=== PATIENT | female | born 2000 | race Caucasian/White ===

== ENCOUNTER 2022-09-20 23:52 | Emergency (ER) | payer BC, SELFPAY ==
[2022-09-21 00:08] VITALS: BP 147/93; PULSE 140; RESP 22; TEMP 36.5; O2SAT 99; BMI 20.7
[2022-09-21 01:15] VITALS: BP 118/79; PULSE 91; RESP 19; O2SAT 95
--- NOTE | 2022-09-21 01:16 | ED_ITS ---
HPI - Nausea/Vomiting/Diarrhea General: Chief complaint: Nausea/Vomiting/Diarrhea Stated complaint: abdomen, luong, post dental surgery Time Seen by Provider: 09/21/22 00:42 Source: patient Mode of arrival: ambulatory Limitations: no limitations History of Present Illness: 21-year-old female states she had her wisdom teeth extracted on she states she had taken some hydrocodone for the pain which caused her to have GI upset states she had had vomiting on Tuesday states she quit taking it and was improved on Tuesday but states she started having upset stomach and vomiting again today. States her dental pain has improved she has been taking Excedrin for that she had 3-4 episodes of vomiting today states she feels dehydrated she has some diffuse abdominal cramping denies any severe pain. She denies any fevers. Associated nausea: Yes Associated symtoms: Reports nausea; Denies chest pain, dysuria or headache(s) Review of Systems Const: Reports: change in appetite; Denies: fever(s), chills or body aches ENMT: Reports: dental pain; Denies: throat pain Card: Denies: chest pain Resp: Denies: dyspnea GI: Reports: nausea and vomiting; Denies: abdominal pain or diarrhea : Denies: dysuria Musc: Denies: neck pain or back pain Skin/Breast: Denies: rash Neuro: Denies: headache(s) Psych: Denies: depression PFSH ED PFSH: Medical History (Updated 09/21/22 @ 03:16 by Daniela Corbin MD) No pertinent past medical history Social History (Updated 09/21/22 @ 01:18 by Daniela Corbin MD) Alcohol intake: never Physical Exam Const: COMMON NORMALS: no acute distress, patient oriented x3 and healthy stefania earing HENMT: COMMON NORMALS: normocephalic and atraumatic HEAD & SCALP: normocephalic and atraumatic Eye: COMMON NORMALS: conjunctivae normal CONJUNCTIVA: Yes conjunctivae normal Neck/C-Spine: COMMON NORMALS: full ROM and supple Chest: COMMONS NORMALS: normal inspection of the chest and normal palpation of entire chest wall Resp: COMMON NORMALS: normal respiratory effort, No retractions, No use of accessory muscles and clear to auscultation bilaterally AUSCULTATION: clear to auscultation bilaterally Cardio: COMMON NORMALS: regular rhythm and No murmurs present (Cardio) RAT E: tachycardic RHYTHM: regular rhythm GI: COMMON NORMALS: Normal to inspection, nondistended, normoactive bowel sounds present, Soft to palpation, non-tender and no masses PALPATION: Yes Soft to palpation Extremity: COMMON NORMALS: normal to inspection and full ROM Neuro: COMMON NORMALS: patient oriented x3, moves all extremities and no focal motor deficits Psych: COMMON NORMALS: mental status grossly normal, Normal thought process present and cooperative THOUGHT PROCESS: Normal thought process present Skin: COMMON NORMALS: no rashes or lesions noted and no wounds GENERAL SKIN EXAM: no rashes or lesions noted Course Vital Signs: Vital signs: Vital Signs Temperature 97.7 F 09/21/22 00:08 Pulse Rate 142 H 09/21/22 04:00 Respiratory Rate 20 H 09/21/22 04:00 Blood Pressure 108/84 09/21/22 04:00 Pulse Oximetry 98 09/21/22 04:00 Oxygen Delivery Me thod Room Air 09/21/22 04:00 MDM - Nausea/Vomiting/Diarrhea Medical Decision Making Patient presents here with nausea vomiting is likely headache from her meds hurt discharge vital signs are incorrect her heart rate improved to 105 she felt much improved as well her blood work here is all normal we will prescribe her Zofran she is stable for discharge return if worsening. Medical Records I reviewed the patient's medical records. Lab Data I reviewed the patient's lab results. 09/21/22 01:25 09/21/22 01:25 Laboratory Results WBC 9.3 10^3/uL (4.5-13.0) 09/21/22 01:25 RBC 4.35 10^6/uL (4.1-5.3) 09/21/22 01:25 Hgb 13.7 g/dL (11.5-15.3) 09/21/22 01:25 Hct 41.3 % (37.0-47.0) 09/21/22 01:25 MCV 94.9 fl (81-99) 09/21/22 01:25 MCH 31.5 pg (28.0-34.0) 09/21/22 01:25 MCHC 33.2 g/dL (30.0-36.0) 09/21/22 01:25 RDW 12.0 % (12.1-15.1) L 09/21/22 01:25 Plt Count 251 10^3/cmm (130-400) 09/21/22 01:25 MPV 10.0 fL (7.4-10.4) 09/21/22 01:25 Neut % (Auto) 82.2 % 09/21/22 01:25 Lymph % (Auto) 12.6 % 09/21/22 01:25 [place] % (Auto) 4.2 % 09/21/22 01:25 Eos % (Auto) 0.2 % 09/21/22 01:25 Baso % (Auto) 0.4 % 09/21/22 01:25 Neut # (Auto) 7.63 10^3/uL (1.8-8.0) 09/21/22 01:25 Lymph # (Auto) 1.2 10^3/uL (1.5-6.5) L 09/21/22 01:25 [place] # (Auto) 0.4 10^3/uL (0.2-0.9) 09/21/22 01:25 Eos # (Auto) 0.0 10^3/uL (0.0-0.8) 09/21/22 01:25 Baso # (Auto) 0.0 10^3/uL (0.0-0.1) 09/21/22 01:25 Nucleated RBC % (auto) 0 % 09/21/22 01:25 Nucleated RBCs # 0.0 /100WBC 09/21/22 01:25 Sodium 139 mmol/L (136-145) 09/21/22 01:25 Potassium 3.7 mmol/L (3.5-5.1) 09/21/22 01:25 Chloride 102 mmol/L (98-107) 09/21/22 01:25 Carbon Dioxide 24 mmol/L (22-29) 09/21/22 01:25 Anion Gap 16.7 (5-19) 09/21/22 01:25 BUN 11 mg/dL (6-20) 09/21/22 01:25 Creatinine 0.9 mg/dL (0.5-0.9) 09/21/22 01:25 GFR Calculation 79.8 mL/min (90-130) L 09/21/22 01:25 Glucose 109 mg/dL (65-115) 09/21/22 01:25 Calculated Osmolality 288 mOsm/kg (285-295) 09/21/22 01:25 Calcium 9.4 mg/dL (8.5-10.5) 09/21/22 01:25 Total Bilirubin 0.2 mg/dL (0.15-1.2) 09/21/22 01:25 AST 23 U/L (0-32) 09/21/22 01:25 ALT 35 U/L (0-33) H 09/21/22 01:25 Alkaline Phosphatase 69 U/L (35-105) 09/21/22 01:25 Total Protein 7.5 g/dL (6.6-8.7) 09/21/22 01:25 Albumin 4.3 g/dL (3.5-5.2) 09/21/22 01:25 Globulin 3.2 g/dL (1.3-4.6) 09/21/22 01:25 Lipase 29 U/L (13-60) 09/21/22 01:25 HCG, Qual Negative (Negative) 09/21/22 01:25 Urine Color Yellow (Yellow) 09/21/22 02:42 Urine Appearance Hazy (CLEAR) A 09/21/22 02:42 Urine pH 7 (5-7) 09/21/22 02:42 Ur Specific [place] 1.015 (1.005-1.030) 09/21/22 02:42 Urine Protein Neg (Negative) 09/21/22 02:42 Urine Glucose (UA) Norm (Normal) 09/21/22 02:42 Urine Ketones 1+ (Negative) H 09/21/22 02:42 Urine Blood 3+ (Negative) H 09/21/22 02:42 Urine Nitrate Positive (Negative) H 09/21/22 02:42 Urine Bilirubin Neg (Negative) 09/21/22 02:42 Urine Urobilinogen Neg mg/dL (Negative) 09/21/22 02:42 Ur Leukocyte Esterase Negative (Negative) 09/21/22 02:42 Urine RBC 5-10 /hpf (0-2) H 09/21/22 02:42 Urine WBC 0-4 /hpf (0-5) H 09/21/22 02:42 Ur Squamous Epith Cells 0-4 /hpf (0-5) H 09/21/22 02:42 Amorphous Sediment Not Reportable 09/21/22 02:42 Urine Bacteria 3+ /hpf (NONE) H 09/21/22 02:42 Discharge Plan Discharge Patient Disposition: Home Clinical Impression: Vomiting, Acute cystitis Prescriptions: New cephalexin 500 mg capsule 500 mg PO TID 7 Days Qty: 21 0RF ondansetron 4 mg tablet,disintegrating 4 mg PO Q6H PRN (Reason: nausea and vomiting) Qty: 14 0RF Discharge Orders: Discharge ED (Routine); Ordered 09/21/22 Ordered By: Daniela Corbin Referrals: Margoth Clark MD [Primary Care Provider] - 1-3 days Discharge Diet: Advance as tolerated Discharge Activity: Resume usual activity Patient Instructions: Urinary Tract Infection in Women (ED), Acute Nausea and Vomiting (ED) Stand Alone Forms: Work/School Release Coding Level of Care Code ED Epidemiology Intern for Anam Hart
[2022-09-21 01:28] LABS: Basophils % 0.4 %; Eosinophils % 0.2 %; Hematocrit 41.3 % (37.0-47.0); Hemoglobin 13.7 g/dL (11.5-15.3); Lymphocytes # 1.2 10^3/uL (1.5-6.5); Lymphocytes % 12.6 %; Mean Corpuscular HGB Conc 33.2 g/dL (30.0-36.0); Mean Corpuscular Hemoglobin 31.5 pg (28.0-34.0); Mean Corpuscular Volume 94.9 fl (81-99); Monocytes # 0.4 10^3/uL (0.2-0.9); Monocytes % 4.2 %; Neutrophils # 7.63 10^3/uL (1.8-8.0); Neutrophils % 82.2 %; Nucleated Red Blood Cells % 0 %; Platelet Count 251 10^3/cmm (130-400); Red Blood Count 4.35 10^6/uL (4.1-5.3); White Blood Count 9.3 10^3/uL (4.5-13.0)
[2022-09-21] MEDS: sodium chloride 0.9% 1,000 ML 999 ML IV ×2 (01:35→02:33)
[2022-09-21] MEDS: ondansetron 2 mg/ML SDV 2 mL 4 MG IVP (01:36)
[2022-09-21 01:45] LABS: HCG, Serum Qual Negative (Negative)
[2022-09-21 01:49] LABS: Alanine Aminotransferase 35 U/L (0-33); Albumin Level 4.3 g/dL (3.5-5.2); Alkaline Phosphatase 69 U/L (35-105); Anion Gap 16.7 (5-19); Aspartate Amino Transferase 23 U/L (0-32); Blood Urea Nitrogen 11 mg/dL (6-20); Calcium 9.4 mg/dL (8.5-10.5); Carbon Dioxide 24 mmol/L (22-29); Chloride 102 mmol/L (98-107); Globulin 3.2 g/dL (1.3-4.6); Glomerular Filtration Rate 79.8 mL/min (90-130); Glucose 109 mg/dL (65-115); Lipase 29 U/L (13-60); Osmolality Calculated 288 mOsm/kg (285-295); Potassium 3.7 mmol/L (3.5-5.1); Sodium 139 mmol/L (136-145); Total Bilirubin 0.2 mg/dL (0.15-1.2); Total Protein 7.5 g/dL (6.6-8.7)
[2022-09-21 03:00] LABS: Add Urine Microscopic? YES; Bacteria Urine 3+ /hpf; Bilirubin Urine Neg (Negative); Blood Urine 3+ (Negative); Glucose Urine UA Norm (Normal); Ketones Urine 1+ (Negative); Leukocyte Esterase Urine Negative (Negative); Nitrate Urine Positive (Negative); Protein Urine Neg (Negative); Specific Gravity, Urine 1.015 (1.005-1.030); Squamous Epithelial Cell Urine 0-4 /hpf (0-5); Urine Appearance Hazy (CLEAR); Urine Color Yellow (Yellow); Urobilinogen Urine Neg (Negative); WBC Urine 0-4 /hpf (0-5); pH Urine 7 (5-7)
[2022-09-21 03:01] LABS: Add Urine Culture? Yes
[2022-09-21] MEDS: metoclopramide 5 mg/mL SDV 2 mL 10 MG IVP (03:33)
[2022-09-21] MEDS: diphenhydrAMINE 50 mg/mL SDV 1mL IVP (03:37)
[2022-09-21] MEDS: LORazepam 2 mg/mL INJ 1 mL 1 MG IVP (03:47)
[2022-09-21] MEDS: cefTRIAXone 1,000 MG in sodium chloride 0.9% (plus) 50 ML 100 MG IV (03:57)
[2022-09-21 04:00] VITALS: BP 108/84; PULSE 142; RESP 20; O2SAT 98
== END 2022-09-21 04:48 | disposition home or self-care (01) ==
PROVIDERS: Emergency Provider Emergency Medicine; PCP Family Medicine
DX: N30.00 Acute cystitis without hematuria (principal); R11.11 Vomiting without nausea
CPT/HCPCS: 80053; 81001; 83690; 84703; 85025; 87077; 87086; 87186; 96361; 96365; 96375; 96376; 99284; J0696; J1200; J2060; J2405; J2765; J7030